=== PATIENT | female | born 1985 | race Caucasian/White ===

== ENCOUNTER 2023-07-26 14:03 | Inpatient (IN) | payer MEDICAID, SELFPAY ==
[2023-07-26 14:05] VITALS: BP 109/62; PULSE 87; RESP 18; TEMP 36.6; O2SAT 96; BMI 28.1
--- NOTE | 2023-07-26 14:46 | EX.ED.SAOD ---
HPI History of Present Illness Chief Complaint: Substance Abuse Narrative Narrative: 37-year-old female presenting for opioid detox. He states he uses fentanyl. Patient states he does not inject or snort but she Boofs it meaning she takes it rectally. Last use was this morning. She is detoxed several times at other facilities. Last use was this morning. Denies alcohol or other drug abuse except for marijuana. Is a smoker. Has history of anxiety. PFSH PFS Medical History no medical history Home Medications baclofen PO BID comfort when detoxing 07/26/23 [History Last Taken Unknown] clonazepam 1 mg tablet 1 mg PO TID 07/26/23 [History Last Taken Unknown] gabapentin 800 mg tablet 800 mg PO QHS 07/26/23 [History Last Taken Unknown] gabapentin 800 mg tablet 800 mg PO TID 07/26/23 [History Last Taken Unknown] quetiapine 50 mg tablet (Seroquel) 100 mg PO QHS 07/26/23 [History Last Taken Unknown] Allergy/AdvReac Type Severity Reaction Status Date / Time No Known Allergies Allergy Verified 07/26/23 14:05 Social History Smoking Status: Current every day smoker tobacco type: cigarettes ROS ROS ED Constitutional Constitutional ED: Denies chills, fever(s) or sweats Eyes Eyes: Denies blurry vision or change in vision ENT ENT ED: Denies ear pain or sore throat Cardiovascular Cardiovascular: Denies chest pain, palpitations or racing heartbeat Respiratory/Chest Respiratory/Chest: Denies cough, dyspnea or sputum Gastrointestinal Gastrointestinal: Denies abdominal pain, constipation, diarrhea, nausea or vomiting Genitourinary Genitourinary ED: Denies dysuria, hematuria or urinary frequency Musculoskeletal Musculoskeletal: Denies arthralgias, myalgias or neck pain Integumentary Denies abscess, Abrasions or rash Neurologic Neurologic: Denies headache(s), paresthesias or weakness Psychiatric Psychiatric: Denies anxiety, depression, suicidal ideation or suicidal thoughts Endocrine Endocrinology: Denies polydipsia or polyuria EXAM Physical Exam Const Vital Signs: 07/26/23 14:05 Temperature 97.8 F Temperature Source Temporal Pulse Rate 87 Respiratory Rate 18 Blood Pressure 109/62 Blood Pressure Mean 77 Pulse Ox 96 Oxygen Delivery Method Room Air General Appearance ED: Negative for pallor HEENT Reports normocephalic and head/scalp atraumatic Eyes PERRL and EOMs intact bilaterally Resp normal respiratory effort Cardio regular rate and regular rhythm Narrative: Deferred Extremity normal to inspection Neuro oriented x3 and CN's II-XII intact bilaterally Sensorium / Orientation: alert Motor Exam: strength 5/5 throughout Psych mental status grossly normal Attitude: No agitated Skin no rashes or lesions noted and no wounds General Skin Exam: Negative for jaundice or pallor MDM MDM MDM Narrative Medical decision making narrative: Patient presenting for fentanyl detox. Patient states last used this morning. She not have any significant withdrawal symptoms. Screening lab work will be obtained. Patient will be given a nicotine patch. Blood work will be obtained. CBC, CMP unremarkable. hCG negative. EtOH negative. Drug screen pending. Patient discussed with hospitalist for admission. Impression: 1. opioid detox Lab Data Attestation: I reviewed the patient's lab results. Labs: Laboratory Results - last 24 hr 07/26/23 07/26/23 14:30 15:34 WBC 6.7 RBC 3.86 L Hgb 12.3 Hct 37.3 MCV 96.6 MCH 31.9 MCHC 33.0 RDW Std Deviation 47.5 H RDW Coeff of Henri 13.3 Plt Count 202 MPV 10.9 Immature Gran % (Auto) 0.300 Neut % (Auto) 62.5 Lymph % (Auto) 25.0 [place] % (Auto) 10.5 H Eos % (Auto) 1.3 Baso % (Auto) 0.4 Absolute Neuts (auto) 4.2 Absolute Lymphs (auto) 1.67 Nucleated RBC % 0 Sodium 141 Potassium 4.1 Chloride 106 Carbon Dioxide 29.0 Anion Gap 6 BUN 13 Creatinine 0.82 Estim Creat Clear Calc 71.57 Est GFR (MDRD) Af Amer 101 Est GFR (MDRD) Non-Af 83 BUN/Creatinine Ratio 15.8 Glucose 90 Calcium 9.1 Total Bilirubin 0.30 AST 12 L ALT 28 Alkaline Phosphatase 54 Total Protein 6.9 Albumin 3.9 Globulin 3.0 Albumin/Globulin Ratio 1.3 Serum , Qual NEGATIVE Ur Drug Screen Comment Ethyl Alcohol < 3.0 Discharge Plan Triage Chief Complaint: Substance Abuse ED Provider: Giovanni Suarez Dx/Rx/DC Orders Prescriptions: No Action quetiapine [Seroquel] 50 mg tablet 100 mg PO QHS gabapentin 800 mg tablet 800 mg PO TID gabapentin 800 mg tablet 800 mg PO QHS clonazepam 1 mg tablet 1 mg PO TID Patient Comments: unsure of exact dosage baclofen PO BID Primary Care Provider: Sarah Dickinson NP Referrals: Sarah Dickinson NP, [employer]OMOBILE SALESMAN-C [Primary Care Provider] -
[2023-07-26 14:47] LABS: Absolute Lymphocyte Count 1.67 X10^3/uL (0.83-4.51); Absolute Neutrophil Count 4.2 X10^3/uL (2.0-7.7); Basophil# 0.03 X10^3/uL; Basophil% 0.4 % (0-1); Eosinophil# 0.09 X10^3/uL; Eosinophils% 1.3 % (0-5); Hematocrit 37.3 % (37-47); Hemoglobin 12.3 g/dL (12.0-15.0); Lymphocyte # 1.67 X10^3/ul (0.83-4.51); Mean Corpuscular Hgb 31.9 pg (27.0-32.0); Mean Corpuscular Volume 96.6 fL (81-99); Mean Platelet Vol. 10.9 fl (6.2-12.0); Monocyte% 10.5 % (0-10); NRBC Flagged by Analyzer 0 % (0-5); Neutrophil # 4.18 X10^3/uL (2.7-7.7); Neutrophil % 62.5 % (47-70); Platelet Count 202 K/mm3 (150-450); RBC Distribution Width CV 13.3 % (11.6-14.6); RBC Distribution Width SD 47.5 fl (35.1-43.9); Red Blood Count 3.86 M/mm3 (4.2-5.4); White Blood Count 6.7 K/mm3 (4.4-11.0)
[2023-07-26 15:05] LABS: ALB/GLOB Ratio 1.3 RATIO (0.9-2.4); AST(SGOT) 12 U/L (15-37); Alanine Aminotransfer ALT/SGPT 28 U/L (13-56); Albumin, Serum 3.9 g/dL (3.2-5.0); Alkaline Phosphatase 54 U/L (45-117); Anion Gap 6 (5-15); BUN 13 mg/dL (7-18); BUN/Creat Ratio 15.8 RATIO (10-20); Calcium,Total 9.1 mg/dL (8.5-10.1); Chloride 106 mmol/L (98-107); Creatinine, Serum 0.82 mg/dL (0.55-1.02); EST Glomerular Filtration Rate 83 mL/min (>60); Est Glom Filt Rate - Afr Amer 101 mL/min (>60); Estimated Creatinine Clearance 71.57 ml/min; Glucose 90 mg/dL (74-106); Potassium 4.1 mmol/L (3.5-5.1); Protein, Total 6.9 g/dL (6.4-8.2); Sodium Level 141 mmol/L (136-145)
[2023-07-26 15:41] LABS: Alcohol, Blood (Medical)-Serum < 3.0 mg/dL; Internal QC Validated? YES +Cl - CLEAR BKGD; Pregnancy, Serum, hCG Quali. NEGATIVE Negative
--- NOTE | 2023-07-26 15:46 | NURSING ---
MED SURG [facility] OPIOID DETOX
[2023-07-26 15:50] VITALS: BP 110/75; PULSE 76; RESP 16; O2SAT 96
[2023-07-26 15:50] LABS: Amphetamine Urine VISTA NEGATIVE (<1000 ng/mL); Barbiturate Urine VISTA NEGATIVE (< 200 ng/mL); Benzodiazepine Urine VISTA NEGATIVE (< 200 ng/mL); Cocaine Urine VISTA POSITIVE (< 300 ng/mL); Ecstacy Urine VISTA POSITIVE (< 500 ng/mL); Methadone Urine VISTA NEGATIVE (< 300 ng/mL); PCP Urine VISTA NEGATIVE (< 25 ng/mL); THC Urine VISTA POSITIVE (< 50 ng/mL); Vista UDS pH Range 6
--- NOTE | 2023-07-26 16:20 | HP.PCM.HOS_ITS ---
HPI - General General Date of Admission: 07/26/23 Date of Service: 07/26/23 Chief Complaint: Request for detox HPI Narrative 37-year-old female with no significant past medical history presenting to [facility] 07/26/2023 for opioid/fentanyl detox with last use this a.m. patient reportedly does not inject or snort but boofs it which means taking it rectally. Hospitalist contacted for admission. Has been detox several times at other facilities, patient would like to pursue detox again. She endorses using about half a gram a day of fentanyl and has used off and on for 22 years and has been to detox and rehab multiple times last being a couple years ago and said she is ready for detox again because it is just time and denies any inciting factor. Denies beginning to go through any kind of withdrawal symptoms. Denies other substance use aside from marijuana. [facility] Medical History no medical history Home Medications baclofen PO BID comfort when detoxing 07/26/23 [History Last Taken Unknown] clonazepam 1 mg tablet 1 mg PO TID 07/26/23 [History Last Taken Unknown] gabapentin 800 mg tablet 800 mg PO QHS 07/26/23 [History Last Taken Unknown] gabapentin 800 mg tablet 800 mg PO TID 07/26/23 [History Last Taken Unknown] quetiapine 50 mg tablet (Seroquel) 100 mg PO QHS 07/26/23 [History Last Taken Unknown] Allergy/AdvReac Type Severity Reaction Status Date / Time No Known Allergies Allergy Verified 07/26/23 14:05 Social History Smoking Status: Current every day smoker tobacco type: cigarettes ROS ROS Narrative General: Denies fever/chills HENT: Denies headache, denies stuffy nose, denies sore throat EYES: Denies changes in vision Resp: Denies cough, denies shortness of breath Cardiac: Denies chest pain GI: Denies abdominal pain, denies changes in bowel, denies nausea/vomiting : Denies changes in urination Extremity: Denies swelling MSK: Denies weakness Neuro: Denies any numbness/tingling Heme: Denies any bleeding or bruising Skin: Denies rashes Psychiatric: No complaints voiced Vital Signs Vital Signs Vital Signs: 07/26/23 14:05 07/26/23 15:50 Temperature 97.8 F Temperature Source Temporal Pulse Rate 87 76 Respiratory Rate 18 16 Blood Pressure 109/62 110/75 Blood Pressure Mean 77 86 Pulse Ox 96 96 Oxygen Delivery Method Room Air Weight Weight: 67.676 kg Body Mass Index (BMI) 28.1 Physical Exam Narrative General: Alert, oriented, no apparent distress HEENT: Atraumatic, normocephalic Eyes: Anicteric, normal conjunctiva, extraocular movements grossly intact Neck: Supple Respiratory: Clear to auscultation bilaterally, normal respiratory effort Cardiovascular: Regular rate and rhythm GI: Soft, nontender, nondistended Extremities: No edema Musculoskeletal: Moving all extremities Neuro: No overt focal neurological deficits Skin: No rashes appreciated Psych: Cooperative Results Lab / Micro Data 07/26/23 14:30 07/26/23 14:30 Labs: Laboratory Results - last 24 hr 07/26/23 14:30: WBC 6.7, RBC 3.86 L, Hgb 12.3, Hct 37.3, MCV 96.6, MCH 31.9, MCHC 33.0, RDW Std Deviation 47.5 H, RDW Coeff of Henri 13.3, Plt Count 202, MPV 10.9, Immature Gran % (Auto) 0.300, Neut % (Auto) 62.5, Lymph % (Auto) 25.0, [place] % (Auto) 10.5 H, Eos % (Auto) 1.3, Baso % (Auto) 0.4, Absolute Neuts (auto) 4.2, Absolute Lymphs (auto) 1.67, Nucleated RBC % 0, Sodium 141, Potassium 4.1, Chloride 106, Carbon Dioxide 29.0, Anion Gap 6, BUN 13, Creatinine 0.82, Estim Creat Clear Calc 71.57, Est GFR (MDRD) Af Amer 101, Est GFR (MDRD) Non-Af 83, BUN/Creatinine Ratio 15.8, Glucose 90, Calcium 9.1, Total Bilirubin 0.30, AST 12 L, ALT 28, Alkaline Phosphatase 54, Total Protein 6.9, Albumin 3.9, Globulin 3.0, Albumin/Globulin Ratio 1.3, Serum , Qual NEGATIVE, Ethyl Alcohol < 3.0 07/26/23 15:34: Urine Opiates Screen POSITIVE H, Urine Methadone Screen NEGATIVE, Ur Barbiturates Screen NEGATIVE, Ur Phencyclidine Scrn NEGATIVE, Ur Amphetamines Screen NEGATIVE, MDMA (Ecstasy) Screen POSITIVE H, U Benzodiazepines Scrn NEGATIVE, Urine Cocaine Screen POSITIVE H, U Cannabinoids Screen POSITIVE H, Ur Drug Screen Comment Assessment & Plan Assessment/Plan (1) Opioid use: PLAN: Plan #Acute opiate withdrawal - Subutex taper initiated - As needed Tylenol, ibuprofen, bowel regimen, Bentyl, Vistaril, methocarbamol, clonidine - As needed trazodone nightly - As needed antiemetics -Once patient begins to clinically improve will discuss further discharge planning -Appears home gabapentin is therefore 400 or 600 multiple times a day based on external fill, schedule gabapentin started -Klonopin on home med list but this has not been filled based on the prescription monitoring program, has previously filled clonidine but do not see any previous Klonopin so this has not been continued #Tobacco use -Advise cessation -Patient scheduled nicotine replacement #DVT ppx: Low risk, ambulatory Karen Sotomayor MD Time spent in the patient's overall evaluation,decision-making process, review of diagnostic data, adjustment of management, discussion with other providers, nursing nursing and ancillary staff involved in patient's care documentation, 40 minutes Charges/Coding Visit Charges Inpatient E&M: 14499 Init Hosp L1
[2023-07-26 17:00] VITALS: BP 110/50; PULSE 74; RESP 18; TEMP 36.8; O2SAT 98
[2023-07-26 17:06] VITALS: BMI 27.2
[2023-07-26] MEDS: Gabapentin 400 MG Capsule PO (21:17)
[2023-07-26] MEDS: hydrOXYzine PAM 25 MG Capsule 50 MG PO (21:17)
[2023-07-26 22:00] VITALS: BP 97/58; PULSE 64; RESP 18; TEMP 36.9; O2SAT 97
[2023-07-26] MEDS: QUEtiapine 100 MG Tablet PO (23:16)
[2023-07-27] VITALS (7 sets, daily range): BP systolic 87–101; BP diastolic 42–60; PULSE 47–58; RESP 16; TEMP 36.2–37; O2SAT 96–100
[2023-07-27] MEDS: Gabapentin 400 MG Capsule PO ×2 (05:02→13:24)
[2023-07-27] MEDS: hydrOXYzine PAM 25 MG Capsule 50 MG PO (05:02)
[2023-07-27] MEDS: Ibuprofen 600 MG Tablet PO (07:58)
[2023-07-27] MEDS: cloNIDine HCl 0.1 MG Tablet PO (07:58)
[2023-07-27] MEDS: Buprenorphine HCl 2 MG TAB.SUBL SL ×2 (11:08→18:53)
--- NOTE | 2023-07-27 17:02 | PCM.PN.HOSP ---
Reason for Visit Reason for Visit: Diagnoses Opioid use, unspecified, uncomplicated (07/26/23) Subjective Subjective Feeling slightly anxious and occasionally sweaty Objective Data Objective Data Vital Signs: Vital Signs Temp Pulse Resp BP Pulse Ox O2 Del Method 97.7 F L 54 L 16 90/54 L 98 Room Air 07/27/23 15:07 07/27/23 15:07 07/27/23 15:07 07/27/23 15:07 07/27/23 15:07 07/27/23 15:07 Oxygen Delivery Method Room Air Weight: 65.459 kg Body Mass Index (BMI) 27.2 Intake & Output: Intake and Output for Last 24 Hours 07/26/23 07/26/23 07/27/23 00:59 23:59 23:59 Intake Total 400 / 400 Balance 400 / 400 Lab / Micro Data 07/26/23 14:30 07/26/23 14:30 Physical Exam Narrative General: Alert, oriented, tired and not feeling well HEENT: Atraumatic, normocephalic Eyes: extraocular movements grossly intact Neck: Supple Respiratory: normal respiratory effort Cardiovascular: no edema appreciated GI: nondistended Extremities: Moving all extremities Neuro: No overt focal neurological deficits Psych: Cooperative Assessment & Plan Assessment/Plan (1) Opioid use: PLAN: Plan #Acute opiate withdrawal - Subutex taper initiated - As needed Tylenol, ibuprofen, bowel regimen, Bentyl, Vistaril, methocarbamol, clonidine - As needed trazodone nightly - As needed antiemetics -Once patient begins to clinically improve will discuss further discharge planning -Appears home gabapentin is therefore 400 or 600 multiple times a day based on external fill, schedule gabapentin started -Klonopin on home med list but this has not been filled based on the prescription monitoring program, has previously filled clonidine but do not see any previous Klonopin so this has not been continued -07/27: Has been started on buprenorphine taper, continue present management. Blood pressure and heart rate have been slightly low, medications adjusted #Tobacco use -Advise cessation -Patient scheduled nicotine replacement #DVT ppx: Low risk, ambulatory Karen Sotomayor MD Charges/Coding Visit Charges Inpatient E&M: 49000 Subs Hosp L1
[2023-07-27] MEDS: 0.9% Normal Saline (1000mL) 1,000 ML 75 ML IV (17:46)
[2023-07-27] MEDS: 0.9% Normal Saline (250mL Bag) 250 ML 999 ML IV (17:48)
[2023-07-27] MEDS: QUEtiapine 100 MG Tablet PO (20:33)
[2023-07-27] MEDS: Gabapentin 800 MG Tablet PO (20:33)
[2023-07-28] MEDS: Buprenorphine HCl 2 MG TAB.SUBL SL ×3 (02:45→19:12)
[2023-07-28 03:00] VITALS: BP 93/55; PULSE 50; RESP 16; TEMP 36.6; O2SAT 99
[2023-07-28] MEDS: Gabapentin 400 MG Capsule PO ×2 (07:59→16:54)
[2023-07-28 09:00] VITALS: BP 98/65; PULSE 87; RESP 18; TEMP 36.6; O2SAT 98
--- NOTE | 2023-07-28 09:33 | ADDICTION ---
This worker met with patient and completed all assessments. Pt would like inpatient treatment. She has been screened and approved for the [facility]. They will provide transportation and plan to pick er up tomorrow, Thursday, around 10:30am.
--- NOTE | 2023-07-28 15:07 | PCM.PN.HOSP ---
Reason for Visit Reason for Visit: Diagnoses Opioid use, unspecified, uncomplicated (07/26/23) Subjective Subjective Still feels like she is going through withdrawal, is getting the Subutex now Objective Data Objective Data Vital Signs: Vital Signs Temp Pulse Resp BP Pulse Ox O2 Del Method 98 F 87 18 98/65 98 Room Air 07/28/23 09:00 07/28/23 09:00 07/28/23 09:00 07/28/23 09:00 07/28/23 09:00 07/28/23 09:00 Oxygen Delivery Method Room Air Weight: 65.459 kg Body Mass Index (BMI) 27.2 Intake & Output: Intake and Output for Last 24 Hours 07/26/23 07/27/23 07/28/23 23:59 23:59 23:59 Intake Total 1100 / 1100 700 / 700 Balance 1100 / 1100 700 / 700 Lab / Micro Data 07/26/23 14:30 07/26/23 14:30 Physical Exam Narrative General: Alert, oriented, tired and not feeling well HEENT: Atraumatic, normocephalic Eyes: extraocular movements grossly intact Neck: Supple Respiratory: normal respiratory effort Cardiovascular: no edema appreciated GI: nondistended Extremities: Moving all extremities Neuro: No overt focal neurological deficits Psych: Cooperative Assessment & Plan Assessment/Plan (1) Opioid use: PLAN: Plan #Acute opiate withdrawal - Subutex taper initiated - As needed Tylenol, ibuprofen, bowel regimen, Bentyl, Vistaril, methocarbamol, clonidine - As needed trazodone nightly - As needed antiemetics -Once patient begins to clinically improve will discuss further discharge planning -Appears home gabapentin is therefore 400 or 600 multiple times a day based on external fill, schedule gabapentin started -Klonopin on home med list but this has not been filled based on the prescription monitoring program, has previously filled clonidine but do not see any previous Klonopin so this has not been continued -07/27: Has been started on buprenorphine taper, continue present management. Blood pressure and heart rate have been slightly low, medications adjusted -07/28: Blood pressure still slightly low however improved with adjustment of medications. Patient to go to inpatient rehab tomorrow #Tobacco use -Advise cessation -Patient scheduled nicotine replacement #DVT ppx: Low risk, ambulatory Karen Sotomayor MD Charges/Coding Visit Charges Inpatient E&M: 10385 Subs Hosp L1
[2023-07-28 15:34] VITALS: BP 104/65; PULSE 62; RESP 18; TEMP 36.6; O2SAT 97
[2023-07-28 20:10] VITALS: BP 98/85; PULSE 113; RESP 18; TEMP 36.6; O2SAT 100
[2023-07-28] MEDS: QUEtiapine 100 MG Tablet PO (22:23)
[2023-07-28] MEDS: Gabapentin 800 MG Tablet PO (22:23)
[2023-07-28] MEDS: Methocarbamol 500 MG Tablet PO (22:25)
[2023-07-29 02:55] VITALS: BP 93/59; PULSE 55; RESP 16; TEMP 36.4; O2SAT 97
[2023-07-29] MEDS: Buprenorphine HCl 2 MG TAB.SUBL SL (02:57)
[2023-07-29] MEDS: Ibuprofen 600 MG Tablet PO (07:41)
[2023-07-29] MEDS: Gabapentin 400 MG Capsule PO (07:41)
[2023-07-29 07:44] VITALS: BP 110/72; PULSE 60; RESP 18; TEMP 36.6; O2SAT 97
--- NOTE | 2023-07-29 10:06 | PCM.DC ---
Discharge Instructions Diet Discharge Diet: No restrictions Activity Discharge Activity: Return to Normal Activity Follow Up Care Test Results: Test results from this visit will be discussed in further detail at your follow-up appointment, if applicable. Discharge Plan Admission Admit Date/Time: 07/26/23 16:20 Primary Reason for Your Visit: Opioid detox Attending Provider: Karen Sotomayor Primary Care Provider: Sarah Dickinson DEBT AND BUDGET COUNSELOR Instructions Patient Instructions: ED Opioid Withdrawal Discharge Orders/Prescriptions Prescriptions: Continued quetiapine [Seroquel] 50 mg tablet 100 mg PO QHS gabapentin 800 mg tablet 800 mg PO QHS Changed gabapentin 800 mg tablet 400 mg PO BIDCM Qty: 30 0RF Discontinued clonazepam 1 mg tablet 1 mg PO TID Patient Comments: unsure of exact dosage baclofen PO BID Referrals / Follow Up: Sarah Dickinson NP, DEBT AND BUDGET COUNSELOR-C [Primary Care Provider] - Within 1 Week Disposition Disposition (needs filled in before D/C Order can be placed): Inpatient Rehab Unit/Facility
--- NOTE | 2023-07-29 10:07 | DS.PCM_ITS ---
Providers Date of Admission: 07/26/23 Date of Discharge: 07/29/23 Primary Care Physician: Sarah Dickinson NP, HOSPICE HOME CARE COORDINATOR-C Reason For Visit: OPIOID DETOX Diagnosis Discharge Diagnosis (1) Opioid use: Status: Acute Code(s): F11.90 - Opioid use, unspecified, uncomplicated Plan #Acute opiate withdrawal #Tobacco use Medications at Discharge Home Medications gabapentin 800 mg tablet 800 mg PO QHS 07/26/23 quetiapine 50 mg tablet (Seroquel) 100 mg PO QHS 07/26/23 gabapentin 800 mg tablet 400 mg (1/2 x 800 mg) PO BIDCM #30 tabs 07/29/23 Hospital Course Summary of Care Provided Minutes Spent on Discharge: 21 Hospital Course: Patient was admitted 07/26/2023 requesting detox from opioids. Patient was admitted and detox protocol ordered. They completed their detox and were discharged in stable condition. On the day of discharge no new medical complaints voiced. Physical Exam Narrative General: Alert, oriented, no apparent distress HEENT: Atraumatic, normocephalic Eyes: extraocular movements grossly intact Neck: Supple Respiratory: normal respiratory effort Cardiovascular: no edema appreciated GI: nondistended Extremities: Moving all extremities Neuro: No overt focal neurological deficits Psych: Cooperative Weight / BMI Weight Weight: 65.459 kg Body Mass Index (BMI) 27.2 ABG / Lab / Microbiology Data 07/26/23 14:30 07/26/23 14:30 D/C Instructions Discharge Diet: No restrictions Meaningful Use Info Meaningful Use Diagnoses (Choose all that apply): None applicable Discharge Plan Admission Admit Date/Time: 07/26/23 16:20 Primary Reason for Your Visit: Opioid detox Attending Provider: Karen Sotomayor Primary Care Provider: Sarah Dickinson NP Instructions Patient Instructions: ED Opioid Withdrawal Discharge Orders/Prescriptions Prescriptions: Continued quetiapine [Seroquel] 50 mg tablet 100 mg PO QHS gabapentin 800 mg tablet 800 mg PO QHS Changed gabapentin 800 mg tablet 400 mg PO BIDCM Qty: 30 0RF Discontinued clonazepam 1 mg tablet 1 mg PO TID Patient Comments: unsure of exact dosage baclofen PO BID Referrals / Follow Up: Sarah Dickinson NP, HOSPICE HOME CARE COORDINATOR-C [Primary Care Provider] - Within 1 Week Disposition Disposition (needs filled in before D/C Order can be placed): Inpatient Rehab Unit/Facility Charges/Coding Visit Charges Inpatient E&M: 70721 Disch Hosp
== END 2023-07-29 10:30 | DRG 897 ==
LOC: ED 15:31 → MS3 16:31
PROVIDERS: Admitting Provider Internal Medicine; Emergency Provider Student in an Organized Health Care Education/Training Program; Visit Provider Internal Medicine
DX: F11.93 Opioid use, unspecified with withdrawal (principal); F12.90 Cannabis use, unspecified, uncomplicated; F17.210 Nicotine dependence, cigarettes, uncomplicated; F41.9 Anxiety disorder, unspecified; Z79.899 Other long term (current) drug therapy
CPT/HCPCS: 80053; 80307; 82077; 84703; 85025; 99284; J7030; J7050